=== PATIENT | male | born 1940 | race Caucasian/White ===

== ENCOUNTER 2018-04-13 22:03 | Inpatient (IN) | payer OTHER ==
[~2018-04-13] VITALS: Ht 180.3 cm; Wt 114.0 kg
[2018-04-13 22:43] LABS: BASOPHIL (%) 0.6 % (0-1); BASOPHIL COUNT 0.1 K/uL (0-0.1); CARBON DIOXIDE (BICARBONATE) 35.7 MEQ/L (20-31); EOSINOPHIL (%) 0.9 % (0-5); EOSINOPHIL COUNT 0.1 K/uL (0-0.3); HEMATOCRIT 44.7 % (38.0-50.0); HEMOGLOBIN 14.8 G/DL (12.5-16.6); IMMATURE GRANULOCYTE (%) 0.8 % (0.0-0.7); LYMPHOCYTE (%) 6.5 % (15-42); LYMPHOCYTE COUNT 1.1 K/uL (1.0-2.8); MCH 30.5 PG (29.0-34.0); MCHC 33.1 G/DL (30.0-36.0); MONOCYTE (%) 2.8 % (3-12); MONOCYTE COUNT 0.5 K/uL (0-0.8); NEUTROPHIL (%) 88.4 % (45-76); NEUTROPHIL COUNT 14.4 K/uL (1.8-6.4); PLATELET COUNT 293 K/uL (156-360); RBC DIS.WIDTH-CV 13.2 % (11.8-14.6); RBC DIS.WIDTH-SD 44.4 % (39-53); RED BLOOD COUNT 4.86 M/uL (4.00-5.50); WHITE BLOOD COUNT 16.2 K/uL (4.1-10.2)
[2018-04-13 22:49] LABS: INTER. NORMALIZED RATIO 3.7
[2018-04-13 22:52] LABS: CHLORIDE 99 mEq/L (99-109); POTASSIUM 5.3 mEq/L (3.7-5.4); PTT 52.1 SEC (25-37); SODIUM 137 mEq/L (136-147)
[2018-04-13 22:53] LABS: GLUCOSE 170 mg/dL (70-99)
[2018-04-13] MEDS ORDERED: COUMADIN5 MG PO (22:56)
[2018-04-13] MEDS ORDERED: OTHER MEDS (22:56)
[2018-04-13] MEDS ORDERED: LASIX20 MG PO (22:56)
[2018-04-13 22:57] LABS: GFR ESTIMATE (CALCULATED) > 59 mL/min/ (58.99-99999)
[2018-04-13 22:58] LABS: UREA NITROGEN (BUN) 21 mg/dL (9-23)
[2018-04-13 23:04] LABS: TROP-I INTERPRETATION NEGATIVE; TROPONIN-I < 0.01 ng/mL (0.0-0.30)
[2018-04-13 23:43] LABS: CARBON DIOXIDE (BICARBONATE) 34.2 MEQ/L (20-31)
[2018-04-14 02:05] LABS: BASE EXCESS 2.5 mEq/L (-3 to +3); BICARBONATE 29.7 mEq/L (22-26); CARBOXY HGB 3.1 % (0-5); COMMENTS - BLOOD GASES C+A+; DEVICE NCHH; FI02 40 %; O2 FLOW 50 L/MIN; PCO2 55 mm Hg (35-45); PO2 123 mm Hg (80-100); SITE RR; pH 7.34 (7.35-7.45)
[2018-04-14 03:05] LABS: APPEARANCE CLEAR ((CLEAR)); BILIRUBIN NEGATIVE; BLOOD NEGATIVE; COLOR YELLOW ((YELLOW)); GLUCOSE (STRIP) NEGATIVE; KETONES NEGATIVE; LEUKOCYTES NEGATIVE; NITRITE NEGATIVE; PROTEIN (STRIP) 100; SPECIFIC GRAVITY 1.057 (1.000-1.030); UROBILINOGEN 0.2 MG/DL (0.2-1.0)
[2018-04-14 03:07] LABS: BACTERIA NONE SEEN /HPF; EPITHELIAL CELLS NONE SEEN /HPF; MUCUS TRACE /LPF; RED BLOOD CELLS 0-5 /HPF (0-5); UCUL ADDED? NO; WHITE BLOOD CELLS 0-5 /HPF (0-5)
[2018-04-14 04:21] VITALS: BP 115/70
[2018-04-14 05:49] LABS: INTER. NORMALIZED RATIO 3.6
[2018-04-14 07:19] VITALS: BP 134/85
[2018-04-14] MEDS ORDERED: SPIRONOLACTONE25 MG PO (10:46)
[2018-04-14] MEDS ORDERED: CENTRUM SILVER1 EAC5 PO (10:47)
[2018-04-14] MEDS ORDERED: DIGOXIN125 MCG PO (10:47)
[2018-04-14] MEDS ORDERED: CARVEDILOL12.5 MG PO (10:47)
[2018-04-14] MEDS ORDERED: TYLENOL REGULA325 MG PO (10:48)
[2018-04-14] MEDS ORDERED: BENADRYL25 MG PO (10:48)
[2018-04-14 12:17] VITALS: BP 111/60
[2018-04-14 17:17] VITALS: BP 117/60
[2018-04-14 19:00] VITALS: BP 125/65; BP 133/74
[2018-04-14 22:39] VITALS: BP 104/64
[2018-04-15 04:56] VITALS: BP 115/67
[2018-04-15 05:13] LABS: BASOPHIL (%) 0.1 % (0-1); EOSINOPHIL (%) 0 % (0-5); HEMATOCRIT 42.5 % (38.0-50.0); HEMOGLOBIN 13.7 G/DL (12.5-16.6); IMMATURE GRANULOCYTE (%) 0.8 % (0.0-0.7); LYMPHOCYTE (%) 4.2 % (15-42); LYMPHOCYTE COUNT 0.9 K/uL (1.0-2.8); MCH 29.3 PG (29.0-34.0); MCHC 32.2 G/DL (30.0-36.0); MONOCYTE (%) 4.5 % (3-12); NEUTROPHIL (%) 90.4 % (45-76); NEUTROPHIL COUNT 20.1 K/uL (1.8-6.4); PLATELET COUNT 267 K/uL (156-360); RBC DIS.WIDTH-CV 13.3 % (11.8-14.6); RBC DIS.WIDTH-SD 43.8 % (39-53); RED BLOOD COUNT 4.67 M/uL (4.00-5.50); WHITE BLOOD COUNT 22.2 K/uL (4.1-10.2)
[2018-04-15 05:30] LABS: INTER. NORMALIZED RATIO 3.3
[2018-04-15 05:58] LABS: CHLORIDE 98 MEQ/L (99-109); CREATININE 0.8 MG/DL (0.6-1.3); GFR ESTIMATE (CALCULATED) > 59 mL/min/ (58.99-99999); GLUCOSE 144 mg/dL (70-99); POTASSIUM 4.4 MEQ/L (3.7-5.4); SODIUM 135 MEQ/L (136-147); UREA NITROGEN (BUN) 20 mg/dL (9-23)
[2018-04-15 07:05] VITALS: BP 142/73
[2018-04-15 11:19] VITALS: BP 114/73
[2018-04-15 16:03] VITALS: BP 118/19
[2018-04-15 19:30] VITALS: BP 137/83
[2018-04-16 00:25] VITALS: BP 118/70
[2018-04-16 04:56] VITALS: BP 131/88
[2018-04-16 05:42] LABS: INTER. NORMALIZED RATIO 2.6
[2018-04-16 07:05] VITALS: BP 144/99
[2018-04-16] MEDS ORDERED: PREDNISONE5 MG PO (10:51)
[2018-04-16] MEDS ORDERED: PREDNISONE20 MG PO (10:51)
[2018-04-16] MEDS ORDERED: DULERA 100 MCG/13 GM IH (10:51)
[2018-04-16] MEDS ORDERED: PREDNISONE10 MG PO (10:51)
[2018-04-16] MEDS ORDERED: SPIRIVA RESPIMAT4 GM IH (10:51)
[2018-04-16] MEDS ORDERED: DELTASONE20 M1 PO (10:51)
[2018-04-16] MEDS ORDERED: FLOVENT 11120 INHALA IH (10:51)
[2018-04-16] MEDS ORDERED: INCRUSE ELLI62.5 MCG IH (11:45)
== END 2018-04-16 13:35 | disposition home or self-care (01) | DRG 189 ==
LOC: EME 22:03 → EDBD 22:03 → EDOF 04-14 00:11 → 4EAST 04-14 00:11 → ENRESERV 04-14 00:14 → EDOF 04-14 02:01 → ENRESERV 04-14 02:02 → 4EAST 04-14 03:35
PROVIDERS: Emergency Medicine; Hospitalist
DX: J96.02 Acute respiratory failure with hypercapnia (principal); I48.2 Chronic atrial fibrillation; J96.01 Acute respiratory failure with hypoxia; I10 Essential (primary) hypertension; R23.0 Cyanosis; F17.210 Nicotine dependence, cigarettes, uncomplicated; J44.1 Chronic obstructive pulmonary disease with (acute) exacerbation; Z79.01 Long term (current) use of anticoagulants; J20.9 Acute bronchitis, unspecified; Z79.899 Other long term (current) drug therapy
CPT/HCPCS: 36600; 71045; 71275; 80048; 81003; 82803; 83880; 84484; 85025; 85027; 85610; 85730; 87070; 87077; 87181; 87185; 87205; 94640; 94640 76; 94760; 94799; 99202; 99281; 99285; J0696; J2930